=== PATIENT | female | born 1985 | race Caucasian/White ===

== ENCOUNTER 2016-06-22 19:58 | Emergency (ER) | payer OTHER ==
[2016-06-22] MEDS ORDERED: POTASSIUM CHLORIDE 20 MEQ TABLET PO STA (21:14)
[2016-06-22] MEDS ORDERED: POTASSIUM CHLORIDE 20 MEQ TABLET PO ONE (21:19)
== END 2016-06-22 23:07 | disposition home or self-care (01) ==
DX: R07.89 Other chest pain (principal); Z95.0 Presence of cardiac pacemaker
CPT/HCPCS: 36415; 71020; 80053; 81025; 83690; 83735; 83880; 84100; 84443; 84484; 85025; 85379; 93005; 93010; 99284; 99285; A9270

== ENCOUNTER 2016-09-26 16:54 | Emergency (ER) | payer OTHER | END 2016-09-26 17:24 | disposition home or self-care (01) | DX: S43.421A Sprain of right rotator cuff capsule, initial encounter (principal); Y93.41 Activity, dancing ==

== ENCOUNTER 2016-11-17 15:57 | Outpatient (CLI) | payer OTHER | END 2016-11-17 15:58 | disposition home or self-care (01) | DX: Z79.899 Other long term (current) drug therapy (principal) ==

== ENCOUNTER 2017-09-04 16:00 | Outpatient (CLI) | payer OTHER | END 2017-09-04 16:01 | disposition home or self-care (01) | LOC: LAB 16:00 | PROVIDERS: ATTEND Obstetrics & Gynecology | DX: N91.2 Amenorrhea, unspecified (principal) | CPT/HCPCS: 36415; 84702 ==

== ENCOUNTER 2017-09-06 09:57 | Outpatient (CLI) | payer OTHER | END 2017-09-06 09:58 | disposition home or self-care (01) | LOC: LAB 09:57 | PROVIDERS: ATTEND Obstetrics & Gynecology | DX: N91.2 Amenorrhea, unspecified (principal) | CPT/HCPCS: 36415; 84702 ==

== ENCOUNTER 2017-09-06 15:44 | Emergency (ER) | payer OTHER ==
[2017-09-06] MEDS ORDERED: BUFFERED LIDOCAINE 10 ML SYRINGE SUBQ STA (15:48)
[2017-09-06 15:50] VITALS: BP 123/77
[2017-09-06] MEDS ORDERED: LIDOCAINE 2% 10 ML MDV SUBQ STA (15:51)
--- NOTE | 2017-09-06 15:51 | ED Physician Documentation ---
PD HPI LOWER EXT INJURY - Stated complaint Stated Complaint: TOE INJ - History obtained from History obtained from: Patient - History of Present Illness PD HPI LOW EXT INJURY LOCATION: Other (She was working at home and hit her toe on something. And the toenail almost completely avulsed. Pain is moderate. No other injuries. She is up-to-date on tetanus.) Review of Systems Constitutional: reports: Reviewed and negative Cardiac: reports: Chest pain / pressure Respiratory: reports: Reviewed and negative PD PAST MEDICAL HISTORY - Past Medical History Respiratory: None Neuro: None Endocrine/Autoimmune: None - Past Surgical History Past Surgical History: Yes Cardiovascular: Pacemaker - Present Medications Home Medications: Ambulatory Orders Medication Instructions Recorded Confirmed HYDROcod/ACETAM 5/325 [[place] 5/325] 1 - 2 ea PO Q6H PRN #10 tablet 09/06/17 - Allergies Allergies/Adverse Reactions: Allergies Allergy/AdvReac Type Severity Reaction Status Date / Time amoxicillin Allergy Hives Verified 09/06/17 15:59 vancomycin Allergy Edema Verified 09/06/17 15:59 - Social History Does the pt smoke?: No Smoking Status: Never smoker Does the pt drink ETOH?: No Does the pt have substance abuse?: No - Immunizations Immunizations are current?: Yes PD ED PE NORMAL - Vitals Vital signs reviewed: Yes - General General: Alert and oriented X 3, No acute distress - Extremities Extremities: Other (Left great toe, there is a nearly complete avulsion of the toenail.) - Neuro Neuro: Alert and oriented X 3, Normal speech Results - Vitals Vitals: Vital Signs - 24 hr 09/06/17 15:48 Temperature 35.9 C L Heart Rate 72 Respiratory 17 Rate Blood Pressure 123/77 O2 Saturation 98 Oxygen O2 Source Room air Procedures - General procedure General procedure: Digital block was done with 2% lidocaine and then the L great toenail was easily removed because it was pretty much off anyways and a dressing was placed. Departure - Departure Disposition: 01 Home, Self Care Clinical Impression: Toenail avulsion Qualifiers: Encounter type: initial encounter Qualified Code(s): S91.209A - Unspecified open wound of unspecified toe(s) with damage to nail, initial encounter Condition: Good Record reviewed to determine appropriate education?: Yes Instructions: ED Avulsion Nail Complete Prescriptions: HYDROcod/ACETAM 5/325 [[place] 5/325] 1 - 2 ea PO Q6H PRN #10 tablet PRN Reason: Pain Comments: Do not drink or drive while taking narcotic pain medication. Note that many narcotic pain relievers also contain Tylenol/acetaminophen. Please ensure that your total dose of acetaminophen from all sources does not exceed 3 g (3000 mg) per day. You may get constipated while on this medication. Take a stool softener such as Colace twice a day while you are on it. Also add an ivcf-bsx-xhoboeg laxative such as senna or MiraLAX on any day that you do not have a bowel movement. If you received a narcotic pain medication or sedative while in the emergency department, do not drive for the next 24 hours.
[2017-09-06] MEDS ORDERED: LIDOCAINE 2% 10 ML MDV ONE (16:01)
== END 2017-09-06 16:17 | disposition home or self-care (01) ==
LOC: ED 15:44
DX: S91.202A Unspecified open wound of left great toe with damage to nail, initial encounter (principal); W22.8XXA Striking against or struck by other objects, initial encounter; Y93.89 Activity, other specified; Y92.009 Unspecified place in unspecified non-institutional (private) residence as the place of occurrence of the external cause; N91.2 Amenorrhea, unspecified
CPT/HCPCS: 11730; 36415; 84702; 99282; 99283

== ENCOUNTER 2017-09-18 10:41 | Outpatient (CLI) | payer OTHER | END 2017-09-18 10:42 | disposition home or self-care (01) | LOC: LAB 10:41 | PROVIDERS: ATTEND Obstetrics & Gynecology | DX: O02.1 Missed abortion (principal) | CPT/HCPCS: 36415; 84702 ==

== ENCOUNTER 2017-10-02 16:02 | Outpatient (CLI) | payer OTHER | END 2017-10-02 16:03 | disposition home or self-care (01) | LOC: LAB 16:02 | PROVIDERS: ATTEND Obstetrics & Gynecology | DX: O03.9 Complete or unspecified spontaneous abortion without complication (principal); N91.2 Amenorrhea, unspecified | CPT/HCPCS: 36415; 84702 ==

== ENCOUNTER 2018-01-14 15:09 | Emergency (ER) | payer OTHER ==
[2018-01-14 15:22] VITALS: BP 139/99
--- NOTE | 2018-01-14 16:37 | ED Physician Documentation ---
History of Present Illness - Stated complaint Stated Complaint: RASH - Chief complaint Chief Complaint: General - History obtained from History obtained from: Patient - History of Present Illness Timing: How many days ago (2) Pain level max: 4 Pain level now: 4 Quality: burning Improved by: nothing Worsened by: nothing - Additonal information Additional information: burning sensation to R lower face. Has happened x2 in the past, followed by rash. Dx with shingles in the past. Took old valacyclovir yesterday. Review of Systems Constitutional: denies: Fever, Chills, Myalgias Eyes: denies: Loss of vision, Decreased vision, Photophobia, Discharge, Irritation Ears: denies: Ear pain Nose: denies: Rhinorrhea / runny nose, Congestion Respiratory: denies: Cough GI: denies: Nausea, Vomiting, Diarrhea Skin: denies: Rash Musculoskeletal: denies: Neck pain, Extremity pain Neurologic: denies: Headache PD PAST MEDICAL HISTORY - Past Medical History Past Medical History: Yes Respiratory: None Endocrine/Autoimmune: None - Past Surgical History Past Surgical History: Yes Cardiovascular: Pacemaker - Present Medications Home Medications: Ambulatory Orders Medication Instructions Recorded Confirmed Multivitamin [Multiple Vitamins] 1 each PO 01/14/18 Valacyclovir HCl [Valtrex] 1,000 mg PO TID #21 tablet 01/14/18 predniSONE [Prednisone] 40 mg PO DAILY #10 tablet 01/14/18 - Allergies Allergies/Adverse Reactions: Allergies Allergy/AdvReac Type Severity Reaction Status Date / Time amoxicillin Allergy Hives Verified 01/14/18 15:22 vancomycin Allergy Edema Verified 01/14/18 15:22 - Social History Does the pt smoke?: No Smoking Status: Never smoker Does the pt drink ETOH?: No Does the pt have substance abuse?: No - Immunizations Immunizations are current?: Yes PD ED PE NORMAL - Vitals Vital signs reviewed: Yes - General General: Alert and oriented X 3, No acute distress - HEENT HEENT: PERRL, EOMI, Moist mucous membranes, Pharynx benign, Other (no visible facial rash) - Neck Neck: Supple, no meningeal sign - Cardiac Cardiac: RRR - Respiratory Respiratory: No respiratory distress, Clear bilaterally - Derm Derm: Warm and dry - Neuro Neuro: Alert and oriented X 3 - Psych Psych: Normal mood, Normal affect Results - Vitals Vitals: Vital Signs - 24 hr 01/14/18 15:20 Temperature 36.4 C L Heart Rate 80 Respiratory 16 Rate Blood Pressure 139/99 H O2 Saturation 100 Oxygen O2 Source Room air PD MEDICAL DECISION MAKING - ED course Complexity details: considered differential, d/w patient ED course: Patient is a 32-year-old female who presents to the emergency department with a right-sided facial burning and she feels like there is a rash present, this is not visible. No vision changes. Will treat her for possible herpes zoster. Patient counseled regarding signs and symptoms for which I believe and urgent re -evaluation would be necessary. Patient with good understanding of and agreement to plan and is comfortable going home at this time This document was made in part using voice recognition software. While efforts are made to proofread this document, sound alike and grammatical errors may occur. - Sepsis Event Vital Signs: Vital Signs - 24 hr 01/14/18 15:20 Temperature 36.4 C L Heart Rate 80 Respiratory 16 Rate Blood Pressure 139/99 H O2 Saturation 100 Oxygen O2 Source Room air Departure - Departure Disposition: 01 Home, Self Care Clinical Impression: Shingles Qualifiers: Herpes zoster complications: without complications Qualified Code(s): B02.9 - Zoster without complications Condition: Good Instructions: ED Shingles Follow-Up: Rene Jordan MD [Primary Care Provider] - Within 1 week Prescriptions: predniSONE [Prednisone] 40 mg PO DAILY #10 tablet Valacyclovir HCl [Valtrex] 1,000 mg PO TID #21 tablet Comments: Take all medications as prescribed. Return if you worsen. Discharge Date/Time: 01/14/18 16:46
== END 2018-01-14 16:46 | disposition home or self-care (01) ==
LOC: ED 15:09
DX: B02.9 Zoster without complications (principal)
CPT/HCPCS: 99283

== ENCOUNTER 2018-02-25 08:51 | Outpatient (CLI) | payer OTHER | END 2018-02-25 08:52 | disposition home or self-care (01) | LOC: LAB 08:51 | PROVIDERS: ATTEND Obstetrics & Gynecology | DX: N91.2 Amenorrhea, unspecified (principal) | CPT/HCPCS: 36415; 84702 ==

== ENCOUNTER 2018-03-02 21:45 | Emergency (ER) | payer OTHER ==
[2018-03-02 21:53] VITALS: BP 140/81
[2018-03-02] MEDS ORDERED: ALBUTEROL NEB 2.5 MG/3 ML INH STA (22:24)
--- NOTE | 2018-03-02 23:58 | ED Physician Documentation ---
PD HPI DYSPNEA - Stated complaint Stated Complaint: CONGESTION - Chief complaint Chief Complaint: Resp - History obtained from History obtained from: Patient - History of Present Illness Timing - onset: Today Timing - details: Gradual onset, Still present Associated symptoms: Wheezing. No: Fever, Cough Similar symptoms before: No diagnosis Recently seen: Not recently seen - Additional information Additional information: Patient is a 33 year old female who is presenting to the emergency department for intermittent shortness of breath. patient states that it started yesterday. patient denies a history of asthma but says every now and again her chest gets tight. patient states that her child's nebulizer wasn't working so she came to the emergency department for a nebulizer treatment. Review of Systems Ten Systems: 10 systems reviewed and negative Constitutional: denies: Fever, Chills Cardiac: denies: Chest pain / pressure, Palpitations Respiratory: reports: Wheezing PD PAST MEDICAL HISTORY - Past Medical History Past Medical History: Yes Respiratory: Asthma Endocrine/Autoimmune: None Other Past Medical History: History of sick sinus syndrome - Past Surgical History Past Surgical History: Yes Cardiovascular: Pacemaker - Present Medications Home Medications: Ambulatory Orders Medication Instructions Recorded Confirmed Multivitamin [Multiple Vitamins] 1 each PO DAILY 01/14/18 Albuterol Sulfate [Proventil Hfa 1 - 2 puffs INH Q4H PRN #1 inhaler 03/02/18 Inhaler] - Allergies Allergies/Adverse Reactions: Allergies Allergy/AdvReac Type Severity Reaction Status Date / Time amoxicillin Allergy Hives Verified 03/02/18 21:53 vancomycin Allergy Edema Verified 03/02/18 21:53 - Social History Does the pt smoke?: No Smoking Status: Never smoker Does the pt drink ETOH?: No Does the pt have substance abuse?: No - Immunizations Immunizations are current?: Yes - POLST Patient has POLST: No PD ED PE NORMAL - Vitals Vital signs reviewed: Yes - General General: Alert and oriented X 3, No acute distress - HEENT HEENT: Atraumatic - Neck Neck: Supple, no meningeal sign - Cardiac Cardiac: RRR, No murmur - Respiratory Respiratory: No respiratory distress - Abdomen Abdomen: Soft - Derm Derm: Normal color, No rash - Extremities Extremities: No deformity - Neuro Neuro: Alert and oriented X 3, No motor deficit Eye Opening: Spontaneous Motor: Obeys Commands Verbal: Oriented GCS Score: 15 - Psych Psych: Normal mood Results - Vitals Vitals: Vital Signs - 24 hr 03/02/18 03/02/18 21:50 23:05 Temperature 36.4 C L Heart Rate 76 70 Respiratory 18 18 Rate Blood Pressure 140/81 H O2 Saturation 100 Oxygen O2 Source Room air PD MEDICAL DECISION MAKING - ED course Complexity details: reviewed old records, re-evaluated patient, considered differential, d/w patient ED course: Patient was seen and examined at bedside. Patient was well appearing and oxygenating well. patient was treated with a nebulizer treatment with good relief. Patient required no further work up at this time and was stable for discharge with outpatient followup. - Sepsis Event Vital Signs: Vital Signs - 24 hr 03/02/18 03/02/18 21:50 23:05 Temperature 36.4 C L Heart Rate 76 70 Respiratory 18 18 Rate Blood Pressure 140/81 H O2 Saturation 100 Oxygen O2 Source Room air Departure - Departure Disposition: 01 Home, Self Care Clinical Impression: Reactive airway disease Condition: Good Instructions: ED Reactive Airway Disease Follow-Up: Rene Jordan MD [Primary Care Provider] - As Needed Prescriptions: Albuterol Sulfate [Proventil Hfa Inhaler] 1 - 2 puffs INH Q4H PRN #1 inhaler PRN Reason: Shortness Of Air/Wheezing Comments: You should follow up with your doctor if your symptoms persist. you should return to the emergency department at any time for new, worsening or uncontrollable symptoms. Discharge Date/Time: 03/03/18 00:03
== END 2018-03-03 00:03 | disposition home or self-care (01) ==
LOC: ED 21:45
DX: J45.909 Unspecified asthma, uncomplicated (principal); Z95.0 Presence of cardiac pacemaker
CPT/HCPCS: 94640; 94664; 99283

== ENCOUNTER 2018-08-12 14:52 | Emergency (ER) | payer OTHER ==
--- NOTE | 2018-08-12 16:46 | ED Physician Documentation ---
PD HPI URI - Stated complaint Stated Complaint: RAPID HR/ FLU LIKE SX - Chief complaint Chief Complaint: General - History obtained from History obtained from: Patient - History of Present Illness Timing - onset: Yesterday Timing details: Abrupt onset, Still present Associated symptoms: Fever, Chills, Nasal congestion, Dry cough. No: NVD, Bilateral edema Contributing factors: No: Sick contact Similar symptoms before: Has not had sx before Recently seen: Clinic (normal exams thus far) Review of Systems Constitutional: reports: Fever, Chills, Myalgias Nose: reports: Rhinorrhea / runny nose, Congestion Throat: denies: Sore throat Cardiac: denies: Chest pain / pressure, Palpitations (but feeling of heart going fast.), Pedal edema Respiratory: reports: Cough GI: reports: Nausea. denies: Vomiting, Diarrhea Skin: denies: Rash Neurologic: denies: Altered mental status, Headache PD PAST MEDICAL HISTORY - Past Medical History Respiratory: Asthma Endocrine/Autoimmune: None - Past Surgical History Past Surgical History: Yes Cardiovascular: Pacemaker - Present Medications Home Medications: Ambulatory Orders Medication Instructions Recorded Confirmed Multivitamin [Multiple Vitamins] 1 each PO DAILY 01/14/18 Albuterol Sulfate [Proventil Hfa 1 - 2 puffs INH Q4H PRN #1 inhaler 03/02/18 Inhaler] Oseltamivir [Tamiflu] 75 mg PO BID #10 capsule 08/12/18 - Allergies Allergies/Adverse Reactions: Allergies Allergy/AdvReac Type Severity Reaction Status Date / Time amoxicillin Allergy Hives Verified 08/12/18 14:58 vancomycin Allergy Edema Verified 08/12/18 14:58 - Social History Does the pt smoke?: No Smoking Status: Never smoker Does the pt drink ETOH?: No Does the pt have substance abuse?: No - Immunizations Immunizations are current?: Yes - POLST Patient has POLST: No PD ED PE NORMAL - Vitals Vital signs reviewed: Yes - General General: Alert and oriented X 3, No acute distress, Well developed/nourished - HEENT HEENT: Ears normal, Pharynx benign - Neck Neck: Supple, no meningeal sign, No adenopathy - Cardiac Cardiac: RRR (tachycardic), No murmur - Abdomen Abdomen: Soft, Non tender, Other (gravid with fundus half way from umbilicus to xyphoid. ) - Female Female : Deferred - Rectal Rectal: Deferred - Back Back: No CVA TTP - Derm Derm: Normal color, Warm and dry - Extremities Extremities: No edema, No calf tenderness / cord - Neuro Neuro: Alert and oriented X 3, No motor deficit, Normal speech Results - Vitals Vitals: Oxygen O2 Source Room air - Labs Labs: Laboratory Tests 08/12/18 15:00 Influenza A (Rapid) Negative Influenza B (Rapid) Negative PD MEDICAL DECISION MAKING - ED course Complexity details: reviewed results, considered differential, d/w patient Departure - Departure Disposition: 01 Home, Self Care Clinical Impression: Flu-like symptoms, Tachycardia Qualifiers: Weeks of gestation: 28 weeks Qualified Code(s): Z3A.28 - 28 weeks gestation of Condition: Stable Record reviewed to determine appropriate education?: Yes Instructions: ED Viral Syndrome Prescriptions: Oseltamivir [Tamiflu] 75 mg PO BID #10 capsule Comments: Your symptoms sound flulike and we will treated with Tamiflu even though the rapid test is negative since it is unreliable. Drink lots of fluids. Tylenol if needed for fevers and pains. Recheck if worsening symptoms. Discharge Date/Time: 08/12/18 17:28
[2018-08-12] MEDS ORDERED: OSELTAMIVIR 75 MG CAPSULE PO STA (17:09)
[2018-08-12 17:28] VITALS: BP 119/79
== END 2018-08-12 17:28 | disposition home or self-care (01) ==
LOC: ED 14:52
DX: O99.89 Other specified diseases and conditions complicating pregnancy, childbirth and the puerperium (principal); R00.0 Tachycardia, unspecified; R09.81 Nasal congestion; R05 Cough; O99.513 Diseases of the respiratory system complicating pregnancy, third trimester; J45.909 Unspecified asthma, uncomplicated; Z3A.28 28 weeks gestation of pregnancy; Z95.0 Presence of cardiac pacemaker
CPT/HCPCS: 87275; 87276; 93005; 99283; A9270

== ENCOUNTER 2018-08-28 12:11 | Outpatient (CLI) | payer OTHER ==
[2018-08-28 12:40] VITALS: BP 118/69
== END 2018-08-28 14:05 | disposition home or self-care (01) ==
LOC: WFO 12:11 → FBP 12:17 → WFO 14:05
PROVIDERS: ATTEND Obstetrics & Gynecology
DX: Z34.83 Encounter for supervision of other normal pregnancy, third trimester (principal)
CPT/HCPCS: 99214

== ENCOUNTER 2018-09-30 08:47 | Emergency (ER) | payer OTHER ==
[2018-09-30] MEDS ORDERED: SODIUM CHLORIDE 0.9% 1,000 ML IV ONE (09:10)
--- NOTE | 2018-09-30 09:13 | ED Physician Documentation ---
PD HPI DYSPNEA - Stated complaint Stated Complaint: SOA/35WKS PREG - Chief complaint Chief Complaint: Cardiac - History obtained from History obtained from: Patient - History of Present Illness Timing - onset: How many days ago (2) Timing - onset during: Rest Timing - duration: Days (2) Timing - details: Gradual onset, Still present Inciting event(s): Other (30 weeks ) Worsened by: Exertion, Laying flat Associated symptoms: No: Fever, Cough, Hemoptysis, Wheezing, Chest pain / discomfort, Palpitations, Diaphoresis, Bilateral edema, Unilateral edema, Anxiety Similar symptoms before: Diagnosis (tachy laura syndrome) Recently seen: Clinic - Additional information Additional information: 33-year-old 5 para 3 female is 30 weeks and 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 She indicates that she has developed dyspnea over the past 3 days and feels that if she lays back she is more short of breath. She denies any nausea vomiting or diarrhea denies any fever or cough states that she recovered from her influenza without incident. 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 Review of Systems Constitutional: denies: Fever Eyes: denies: Decreased vision Ears: denies: Ear pain Nose: denies: Rhinorrhea / runny nose, Congestion Throat: denies: Sore throat Cardiac: denies: Chest pain / pressure, Palpitations, Pedal edema, Calf pain Respiratory: reports: Dyspnea. denies: Cough, Hemoptysis, Wheezing GI: denies: Abdominal Pain, Nausea, Vomiting : denies: Dysuria, Frequency Skin: denies: Rash Musculoskeletal: denies: Neck pain, Back pain, Extremity pain Neurologic: denies: Generalized weakness, Focal weakness, Numbness PD PAST MEDICAL HISTORY - Past Medical History Respiratory: Asthma Endocrine/Autoimmune: None - Past Surgical History Past Surgical History: Yes Cardiovascular: Pacemaker - Present Medications Home Medications: Ambulatory Orders Medication Instructions Recorded Confirmed Multivitamin [Multiple Vitamins] 1 each PO DAILY 01/14/18 Albuterol Sulfate [Proventil Hfa 1 - 2 puffs INH Q4H PRN #1 inhaler 03/02/18 09/30/18 Inhaler] Metoprolol Succinate [Toprol Xl] 25 mg PO DAILY 09/30/18 09/30/18 Metoprolol Succinate [Toprol Xl] 50 mg PO DAILY 09/30/18 09/30/18 Nitrofurantoin Monohyd/M-Cryst 100 mg PO BID #10 capsule 09/30/18 [Macrobid 100 mg Capsule] - Allergies Allergies/Adverse Reactions: Allergies Allergy/AdvReac Type Severity Reaction Status Date / Time amoxicillin Allergy Hives Verified 09/30/18 08:56 vancomycin Allergy Edema Verified 09/30/18 08:56 - Social History Does the pt smoke?: No Smoking Status: Never smoker Does the pt drink ETOH?: No Does the pt have substance abuse?: No - Immunizations Immunizations are current?: Yes - POLST Patient has POLST: No PD ED PE NORMAL - Vitals Vital signs reviewed: Yes (hypertensive mild ) - General General: Alert and oriented X 3, No acute distress, Well developed/nourished - HEENT HEENT: Atraumatic, PERRL, EOMI, Ears normal, Moist mucous membranes, Pharynx benign, Dentition benign - Neck Neck: Supple, no meningeal sign, No bony TTP - Cardiac Cardiac: RRR, No murmur - Respiratory Respiratory: No respiratory distress, Clear bilaterally - Abdomen Abdomen: Soft, Non tender, Other (gravid uterus a hand below the xyphoid ) - Back Back: No CVA TTP, No spinal TTP - Derm Derm: Normal color, Warm and dry, No rash - Extremities Extremities: No deformity, No edema - Neuro Neuro: Alert and oriented X 3, tennis racket repairer 2-12 intact, No motor deficit, No sensory deficit, Normal speech Eye Opening: Spontaneous Motor: Obeys Commands Verbal: Oriented GCS Score: 15 - Psych Psych: Normal mood, Normal affect Results - Vitals Vitals: Vital Signs - 24 hr 09/30/18 09/30/18 09/30/18 08:53 09:14 09:30 Temperature 35.7 C L Heart Rate 100 111 H 110 H Respiratory 20 15 21 Rate Blood Pressure 145/87 H 145/87 H 125/75 O2 Saturation 100 98 97 09/30/18 09/30/18 10:44 11:46 Temperature Heart Rate 87 86 Respiratory 19 19 Rate Blood Pressure 124/79 132/73 H O2 Saturation 100 100 Oxygen O2 Source Room air - EKG (time done) 0856 Rate: Rate (enter#) (99) Rhythm: NSR, LAE Ischemia: Normal ST segments Compare to prior EKG: Unchanged from prior EKG (SPT 08/12/18 no changes) Computer interpretation: Agree with computer - Labs Labs: Laboratory Tests 09/30/18 09/30/18 09/30/18 09:09 09:09 09:09 WBC 8.5 RBC 4.06 L Hgb 11.8 L Hct 35.6 L MCV 87.7 MCH 29.2 MCHC 33.3 RDW 13.6 Plt Count 227 MPV 7.6 L Neut # (Auto) 5.9 Lymph # (Auto) 2.0 [place] # (Auto) 0.6 Eos # (Auto) 0.1 Baso # (Auto) 0.0 Absolute Nucleated RBC 0.00 Nucleated RBC % 0.0 Sodium 136 Potassium 3.6 Chloride 103 Carbon Dioxide 22 Anion Gap 11.0 BUN 8 Creatinine 0.4 Estimated GFR (MDRD) 183 Glucose 107 H Calcium 8.9 Total Bilirubin 0.3 AST 19 ALT 12 Alkaline Phosphatase 95 Troponin I < 0.04 B-Natriuretic Peptide Total Protein 7.0 Albumin 3.2 Globulin 3.8 Albumin/Globulin Ratio 0.8 L Lipase 34 Urine Color Urine Clarity Urine pH Ur Specific [place] Urine Protein Urine Glucose (UA) Urine Ketones Urine Occult Blood Urine Nitrite Urine Bilirubin Urine Urobilinogen Ur Leukocyte Esterase Urine RBC Urine WBC Ur Squamous Epith Cells Urine Bacteria Ur Microscopic Review Urine Culture Comments 09/30/18 09/30/18 09:09 10:41 WBC RBC Hgb Hct MCV MCH MCHC RDW Plt Count MPV Neut # (Auto) Lymph # (Auto) [place] # (Auto) Eos # (Auto) Baso # (Auto) Absolute Nucleated RBC Nucleated RBC % Sodium Potassium Chloride Carbon Dioxide Anion Gap BUN Creatinine Estimated GFR (MDRD) Glucose Calcium Total Bilirubin AST ALT Alkaline Phosphatase Troponin I B-Natriuretic Peptide 20 Total Protein Albumin Globulin Albumin/Globulin Ratio Lipase Urine Color YELLOW Urine Clarity CLEAR Urine pH 7.0 Ur Specific [place] 1.015 Urine Protein NEGATIVE Urine Glucose (UA) NEGATIVE Urine Ketones NEGATIVE Urine Occult Blood NEGATIVE Urine Nitrite NEGATIVE Urine Bilirubin NEGATIVE Urine Urobilinogen 0.2 (NORMAL) Ur Leukocyte Esterase TRACE H Urine RBC None Seen Urine WBC 6-10 H Ur Squamous Epith Cells MOD Squamous H Urine Bacteria Few Ur Microscopic Review INDICATED Urine Culture Comments NOT INDICATED - Rads (name of study) chest 1 veiw Radiology: Prelim report reviewed (Impression: Stable examination with no cardiopulmonary abnormality.), EMP read indepedently, See rad report Procedures - Bedside sono Bedside sono by EMP: With use of bedside ultrasound the fetus is imaged and the heart rate is clocked at 156. - IVC sono (time) 0905 Bedside IVC sono: IVC measures (cm) (1.02), IVC collapsed c insp (cm) (complete), Dehydration (est > 1 liter deficit) PD MEDICAL DECISION MAKING - ED course Complexity details: reviewed old records, reviewed results, re-evaluated patient, considered differential, d/w patient ED course: 33-year-old female with tachybradycardia syndrome comes into the emergency department with a chief complaint of dyspnea. She does not appear to be in failure and in fact has a reduced vascular volume. She has a sinus rhythm with a rate of close to 100 and she appears dyspneic at rest. Her lung exam is unremarkable her electrocardiogram is unremarkable. She is given intravenous fluids. The patient's urine does look infected and she states that she never gets symptoms with this and has in fact developed Adolfo because she has delayed care. She is administered Rocephin intravenously and will place her on some Macrobid. She feels resolved with the fluids. Her blood pressure is now normal. Departure - Departure Disposition: 01 Home, Self Care Clinical Impression: Dehydration Urinary tract infection Qualifiers: Urinary tract infection type: acute cystitis Hematuria presence: without hematuria Qualified Code(s): N30.00 - Acute cystitis without hematuria Condition: Stable Instructions: ED Dehydration, ED UTI Cystitis Female Follow-Up: Eugenia Do PA [Primary Care Provider] - Prescriptions: Nitrofurantoin Monohyd/M-Cryst [Macrobid 100 mg Capsule] 100 mg PO BID #10 capsule
[2018-09-30 09:17] LABS: BASOPHILS % (AUTO) 0.3 %; EOSINOPHILS # (AUTO) 0.1 10^3/uL (0.0-0.7); EOSINOPHILS % (AUTO) 0.7 %; HGB - HEMOGLOBIN 11.8 g/dL (12.0-16.0); LYMPHOCYTES % (AUTO) 23.2 %; MEAN CORPUSCULAR HEMOGLOBIN 29.2 pg (27.0-31.0); MEAN CORPUSCULAR HGB CONC 33.3 g/dL (32.0-36.0); MEAN CORPUSCULAR VOLUME 87.7 fL (81.0-99.0); MEAN PLATELET VOLUME 7.6 fL (7.9-10.8); MONOCYTES # (AUTO) 0.6 10^3/uL (0.0-1.0); MONOCYTES % (AUTO) 6.7 %; NEUTROPHILS # (AUTO) 5.9 10^3/uL (1.5-6.6); NEUTROPHILS % (AUTO) 69.1 %; PLT - PLATELET COUNT 227 10^3/uL (130-450); RED BLOOD COUNT 4.06 10^6/uL (4.20-5.40); RED CELL DISTRIBUTION WIDTH 13.6 % (12.0-15.0); WHITE BLOOD COUNT 8.5 x10^3/uL (4.8-10.8)
[2018-09-30 09:32] LABS: ALBUMIN 3.2 g/dL (3.2-5.5); ALBUMIN/GLOBULIN RATIO 0.8 (1.0-2.2); BILIRUBIN,TOTAL 0.3 mg/dL (0.2-1.0); CALCIUM 8.9 mg/dL (8.5-10.3); CREATININE 0.4 mg/dL (0.4-1.0)
--- NOTE | 2018-09-30 09:47 | XRAY Report ---
Reason: soa Procedure Date: 09/30/2018 Accession Number: [id number] / [id number] Procedure: XR - Chest 1 View X-Ray CPT Code: 23239 FULL RESULT: EXAM: CHEST RADIOGRAPHY EXAM DATE: 09/30/2018 09:41 AM. CLINICAL HISTORY: SOA. COMPARISON: CHEST 2 VIEW PA/LAT 06/22/2016 8:28 PM. TECHNIQUE: 1 view. FINDINGS: Lungs/Pleura: No focal opacities evident. No pleural effusion. No pneumothorax. Mediastinum: Within exam limitations, the cardiomediastinal contour is normal. Other: Pacemaker and leads are unchanged in configuration. IMPRESSION: Stable examination with no cardiopulmonary abnormality. RADIA
[2018-09-30 10:49] LABS: BILIRUBIN,URINE NEGATIVE (NEGATIVE); GLUCOSE, URINE (UA) NEGATIVE (NEGATIVE); KETONES,URINE (UA) NEGATIVE (NEGATIVE); LEUKOCYTE ESTERASE, URINE TRACE (NEGATIVE); NITRITE,URINE NEGATIVE (NEGATIVE); OCCULT BLOOD,URINE NEGATIVE (NEGATIVE); PROTEIN,URINE NEGATIVE (NEGATIVE); UROBILINOGEN,URINE 0.2 (NORMAL) E.U./dL (NORMAL)
[2018-09-30 10:51] LABS: CLARITY,URINE CLEAR (CLEAR)
[2018-09-30 11:11] LABS: BACTERIA,URINE Few /HPF (None Seen); RBC,URINE None Seen /HPF (0-5); SQUAMOUS EPITHELIAL CELL,UR MOD Squamous (<= Few)
[2018-09-30 11:46] VITALS: BP 132/73
[2018-09-30] MEDS ORDERED: cefTRIAXone 1 GM in SODIUM CHLORIDE 0.9% MINIBAG 100 ML IV STA (11:51)
== END 2018-09-30 12:00 | disposition home or self-care (01) ==
LOC: ED 08:47
DX: O99.89 Other specified diseases and conditions complicating pregnancy, childbirth and the puerperium (principal); I49.5 Sick sinus syndrome; N30.00 Acute cystitis without hematuria; Z95.0 Presence of cardiac pacemaker; Z3A.30 30 weeks gestation of pregnancy
CPT/HCPCS: 36415; 71045; 80053; 81001; 81003; 83690; 83880; 84484; 85025; 87086; 93005; 96361; 96365; 99283; 99284

== ENCOUNTER 2018-12-13 10:39 | Outpatient (CLI) | payer OTHER ==
--- NOTE | 2018-12-13 14:59 | XRAY Report ---
Reason: LUMBAR RADICULOPATHY Procedure Date: 12/13/2018 Accession Number: [id number] / [id number] Procedure: WCP - Lumbar Spine 2 View CPT Code: FULL RESULT: EXAM: LUMBOSACRAL SPINE RADIOGRAPHY EXAM DATE: 12/13/2018 10:35 AM. CLINICAL HISTORY: lUMBAR RADICULOPATHY. COMPARISONS: None. TECHNIQUE: 2 views. FINDINGS: Alignment: Normal. No spondylolisthesis or scoliosis. Bones: Five [id number]-[id number] lumbar vertebral bodies are present. No fractures or bone lesions. Disks: Normal. Disk heights are maintained. Facets: No degenerative changes. Sacroiliac Joints: Unremarkable. Soft Tissues: Normal. The visualized bowel gas pattern is normal. IMPRESSION: Normal lumbar spine radiography. RADIA
== END 2018-12-13 10:40 | disposition home or self-care (01) ==
LOC: DI.WCP 10:39
PROVIDERS: ATTEND Family Medicine
DX: M54.16 Radiculopathy, lumbar region (principal)
CPT/HCPCS: 72100

== ENCOUNTER 2019-04-04 08:40 | Outpatient (CLI) | payer OTHER ==
[2019-04-04 12:38] LABS: BASOPHILS % (AUTO) 0.8 %; EOSINOPHILS # (AUTO) 0.1 10^3/uL (0.0-0.7); LYMPHOCYTES # (AUTO) 1.8 10^3/uL (1.5-3.5); LYMPHOCYTES % (AUTO) 38.3 %; MEAN CORPUSCULAR HGB CONC 32.7 g/dL (32.0-36.0); MEAN PLATELET VOLUME 10.4 fL (7.9-10.8); MONOCYTES # (AUTO) 0.3 10^3/uL (0.0-1.0); MONOCYTES % (AUTO) 7.1 %; NEUTROPHILS # (AUTO) 2.5 10^3/uL (1.5-6.6); NEUTROPHILS % (AUTO) 52.6 %; PLT - PLATELET COUNT 242 10^3/uL (130-450); RED BLOOD COUNT 4.19 10^6/uL (4.20-5.40); RED CELL DISTRIBUTION WIDTH 12.2 % (12.0-15.0); WHITE BLOOD COUNT 4.8 x10^3/uL (4.8-10.8)
[2019-04-04 13:01] LABS: ALBUMIN 4.5 g/dL (3.2-5.5); ALBUMIN/GLOBULIN RATIO 1.6 (1.0-2.2); ALKALINE PHOSPHATASE 62 IU/L (42-121); ALT ALANINE AMINOTRANSFERASE 13 IU/L (10-60); AST ASPARTATE AMINOTRANSFERASE 14 IU/L (10-42); BILIRUBIN,TOTAL 0.6 mg/dL (0.2-1.0); BUN - BLOOD UREA NITROGEN 13 mg/dL (6-20); CALCIUM 9.1 mg/dL (8.5-10.3); CARBON DIOXIDE - CO2 24 mmol/L (21-32); CHLORIDE 109 mmol/L (101-111); CHOL/HDL RATIO 3.1 (<4.4); CHOLESTEROL 196 mg/dL; CREATININE 0.7 mg/dL (0.4-1.0); GFR - MDRD 95 (>89); GLUCOSE 83 mg/dL (70-100); HDL CHOLESTEROL 63 mg/dL; LDL CHOLESTEROL,CALCULATED 123 mg/dL; SODIUM 140 mmol/L (135-145); TOTAL PROTEIN 7.4 g/dL (6.7-8.2); VLDL CHOLESTEROL 10 mg/dL
[2019-04-04 13:03] LABS: HB2 TOTAL 13.9 g/dL; HEMOGLOBIN A1C 0.44 g/dL
== END 2019-04-04 23:59 | disposition home or self-care (01) ==
LOC: LAB.WCP 08:40
PROVIDERS: ATTEND Physician Assistant
DX: Z00.00 Encounter for general adult medical examination without abnormal findings (principal); R53.83 Other fatigue; Z83.3 Family history of diabetes mellitus
CPT/HCPCS: 36415; 80053; 80061; 83036; 83721; 84443; 85025

== ENCOUNTER 2020-01-28 07:00 | Outpatient (CLI) | payer OTHER ==
[2020-01-28 19:59] LABS: BILIRUBIN,URINE NEGATIVE (NEGATIVE); GLUCOSE, URINE (UA) NEGATIVE (NEGATIVE); KETONES,URINE (UA) NEGATIVE (NEGATIVE); LEUKOCYTE ESTERASE, URINE TRACE (NEGATIVE); NITRITE,URINE NEGATIVE (NEGATIVE); OCCULT BLOOD,URINE SMALL (NEGATIVE); PH,URINE 5.5 PH (5.0-7.5); PROTEIN,URINE 100 mg/dL (NEGATIVE); UROBILINOGEN,URINE 0.2 (NORMAL) E.U./dL (NORMAL)
[2020-01-28 20:18] LABS: BACTERIA,URINE None Seen /HPF (None Seen); CLARITY,URINE CLEAR (CLEAR); MUCUS,URINE Marked Strands; RBC,URINE 0-5 /HPF (0-5); SQUAMOUS EPITHELIAL CELL,UR NONE SEEN (<= Few)
== END 2020-01-28 23:59 | disposition home or self-care (01) ==
LOC: LAB.R 07:00
PROVIDERS: ATTEND Physician Assistant
DX: N39.0 Urinary tract infection, site not specified (principal)
CPT/HCPCS: 81001; 87086